=== PATIENT | female | born 1965 | race African-American/Black ===

== ENCOUNTER 2025-02-18 04:11 | Emergency (ER) | payer MEDICAID ==
[~2025-02-18] VITALS: Ht 157.5 cm; Wt 91.9 kg
[2025-02-18 04:16] VITALS: TEMP 37.1; O2SAT 97
[2025-02-18 04:21] VITALS: O2SAT 99
[2025-02-18 05:10] VITALS: PULSE 85
[2025-02-18] MEDS: KETOROLAC 15MG/ML VIAL IM ONE (05:10)
[2025-02-18 05:26] VITALS: BP 176/67; RESP 20
[2025-02-18] MEDS: LIDOCAINE 5% PATCH TOP SCH (05:26)
[2025-02-18] MEDS ORDERED: METH-653 MT (06:24)
[2025-02-18] MEDS ORDERED: IBUP-2029 MT (06:24)
== END 2025-02-18 08:38 | disposition home or self-care (01) ==
LOC: ER 04:11
DX: M75.32 Calcific tendinitis of left shoulder (principal); E11.9 Type 2 diabetes mellitus without complications; Z98.890 Other specified postprocedural states; Z88.2 Allergy status to sulfonamides
CPT/HCPCS: 73030; 96372; 99283; J1885; Z7610; A4565